=== PATIENT | female | born 1935 | race Caucasian/White ===

== ENCOUNTER 2017-08-20 08:35 | Inpatient (IN) | payer MEDICARE ==
[2017-08-14 11:02] LABS: BASOPHILS # (AUTO) 0.2 X10'3 (0-0.2); BASOPHILS % (AUTO) 0.5 % (0-1); EOSINOPHILS # (AUTO) 0.4 X10'3 (0-0.9); LYMPHOCYTES % (AUTO) 79.3 % (21-51); MEAN CORPUSCULAR HEMOGLOBIN 29.8 PG (27.0-31.0); MEAN CORPUSCULAR HGB CONC 32.5 % (33.0-36.5); MEAN CORPUSCULAR VOLUME 91.6 FL (78-98); MEAN PLATELET VOLUME 9.5 FL (7.4-10.4); MONOCYTES # (AUTO) 1.4 X10'3 (0-0.9); MONOCYTES % (AUTO) 3.5 % (2-12); NEUTROPHILS # (AUTO) 6.3 X10'3 (1.8-7.7); NEUTROPHILS % (AUTO) 15.7 % (42-75); PRE OP HEMATOCRIT 41.1 % (35.0-45.0); PRE OP HEMOGLOBIN 13.4 g/dL (12.0-16.0); PRE OP PLATELET COUNT 203 X10'3 (140-440); RED BLOOD COUNT 4.48 X10'6 (4.20-5.60); RED CELL DISTRIBUTION WIDTH 14.3 % (11.5-14.5)
[2017-08-14 11:04] LABS: CLARITY,URINE Clear (Clear); COLOR,URINE Yellow (Yellow); GLUCOSE, URINE Negative (Neg); KETONES,URINE Negative (Neg); LEUKOCYTE ESTERASE ,URINE Negative (Neg); NITRITES, URINE Negative (Neg); OCCULT BLOOD,URINE Negative (Neg); PROTEIN,URINE Negative (Neg); UROBILINOGEN,URINE 0.2 E.U/dL (0.2-1.0)
[2017-08-14 11:06] LABS: UA COLLECTION TYPE CLN CATCH MIDSTREAM
[2017-08-14 11:15] LABS: ALBUMIN/GLOBULIN RATIO 1.3 (1.1-1.5); ALKALINE PHOSPHATASE 113 IU/L (46-116); BLOOD UREA NITROGEN 26 MG/DL (7-18); BUN/CREATININE RATIO 20.6 (6.6-38.0); CHLORIDE 106 MMOL/L (99-107); CREATININE 1.26 MG/DL (0.40-0.90); PRE OP ALT 32 U/L (30-65); PRE OP ANION GAP 7 (8-16); PRE OP AST 24 U/L (10-37); PRE OP BILIRUB, TOTAL 0.3 MG/DL (0.0-1.0); PRE OP GLUCOSE 92 MG/DL (70-104); PRE OP SODIUM 141 MMOL/L (135-145); TOTAL CARBON DIOXIDE 28.2 MMOL/L (24-32); TOTAL PROTEIN 7.2 G/DL (6.4-8.2); eGFR 41 ML/MIN
[2017-08-14 11:21] LABS: TOTAL CELLS COUNTED 100
[2017-08-14 11:22] LABS: PLATELET ESTIMATE NORMAL
[2017-08-20] VITALS (15 sets, daily range): BP systolic 149–180; BP diastolic 59–79
[~2017-08-20] VITALS: Ht 167.6 cm; Wt 60.7 kg
[~2017-08-20 08:35] MED LIST: CHOL378P PO; CHOL400T32 PO; DILT240C96 PO; OMEP1CAP2 PO; ONDA8TAB6 PO; OXYC10TA6 PO; POLY17PO10 PO; PRAV40TA3 PO; ZOLP5TAB8 PO; clindamycin 600mg/D5W 50ml 50 ML IV ONE; famotidine 20mg tablet PO ONE; ringers solution, lacted 1,000 ML IV SCH
[2017-08-20] MEDS ORDERED: METO-292 PO (09:28)
[2017-08-20] MEDS ORDERED: PREVCR VG (09:28)
[2017-08-20] MEDS ORDERED: LACTC PO (09:28)
[2017-08-20] MEDS ORDERED: LYSI500T40 PO (09:28)
[2017-08-20] MEDS ORDERED: DEXL60CA3 PO (09:28)
[2017-08-20] MEDS ORDERED: BUPIVAcaine 0.5% inj/PF 30 ml vial ONE (11:37)
[2017-08-20] MEDS ORDERED: fentaNYL/PF 50MCG/1 ML 2ML syringe ONE (11:52)
[2017-08-20] MEDS ORDERED: midazolam 2 mg/2 ml injection ONE (11:53)
[2017-08-20] MEDS ORDERED: LIDOcaine 2% 5ml jelly ONE (11:53)
[2017-08-20] MEDS ORDERED: meperidine/PF 25mg/ml syringe IV PRN (12:25)
[2017-08-20] MEDS ORDERED: proCHLORperazine 10 MG/2 ml inj IV PRN (12:25)
[2017-08-20] MEDS ORDERED: morphine sulfate 8 MG/ML SYRINGE IV PRN (12:25)
[2017-08-20] MEDS ORDERED: ondansetron/PF 4mg/2ml inj IV PRN ×2 (12:25→13:20)
[2017-08-20] MEDS ORDERED: meperidine/PF 25mg/ml syringe IV ONE (12:25)
[2017-08-20] MEDS ORDERED: rocuronium 10mg/ml inj IV ONE (13:07)
[2017-08-20] MEDS ORDERED: dexamethasone sod phosphate 4mg/ml inj. ONE (13:07)
[2017-08-20] MEDS ORDERED: LIDOcaine 2% (20mg/ml) 5ml vial ONE (13:07)
[2017-08-20] MEDS ORDERED: propofol inj 20 ML IV ONE (13:07)
[2017-08-20] MEDS ORDERED: ondansetron/PF 4mg/2ml inj ONE (13:07)
[2017-08-20] MEDS ORDERED: zolpidem 5mg tablet PO PRN (13:20)
[2017-08-20] MEDS ORDERED: HYDROcodone/acetaminophen 5mg/325mg tablet PO PRN (13:20)
[2017-08-20] MEDS ORDERED: HYDROcodone/acetaminophen 10/325mg tab PO PRN (13:20)
[2017-08-20] MEDS: meperidine/PF 25mg/ml syringe IV PRN ×2 (13:57→14:08)
[2017-08-20] MEDS: morphine sulfate 8 MG/ML SYRINGE IV PRN ×3 (14:19→14:43)
[2017-08-20] MEDS ORDERED: ONDANSETRON HCL PO PRN (15:35)
[2017-08-20] MEDS: clindamycin phosphate inj 300 MG in dextrose 5%-water 50ml 48 ML IV SCH ×2 (15:38→20:16)
[2017-08-20] MEDS ORDERED: ondansetron 4mg rapidly disintigrating tab PO PRN (15:45)
[2017-08-20] MEDS: potassium CL 20mEq in D5-1/2NS 1,000 ML IV SCH (20:14)
[2017-08-20] MEDS: enoxaparin 30mg/0.3ml syringe SQ SCH (20:15)
[2017-08-20] MEDS: diltiazem CD 120mg capsule (once-daily) PO SCH (20:16)
[2017-08-20] MEDS: atorvastatin 10mg tablet PO SCH (20:16)
[2017-08-20] MEDS: oxyCODONE SR 10mg (sust. release) tab PO SCH (20:16)
[2017-08-20] MEDS ORDERED: OXYCODONE HCL 20 MG PO SCH (21:00)
[2017-08-20] MEDS ORDERED: pravastatin 40mg tablet PO SCH (21:00)
[2017-08-20] MEDS ORDERED: non-formulary drug (Diltiazem HCl (Diltiazem 24Hr Cd) 1 CAP) PO SCH (21:00)
[2017-08-20] MEDS: zolpidem 5mg tablet PO SCH (21:00)
[2017-08-21] VITALS: BP 153/65
[2017-08-21] MEDS: clindamycin phosphate inj 300 MG in dextrose 5%-water 50ml 48 ML IV SCH ×4 (01:56→20:16)
[2017-08-21] MEDS: ringers solution, lacted 1,000 ML IV SCH ×2 (02:02→02:04)
[2017-08-21 08:00] VITALS: BP 150/69
[2017-08-21] MEDS ORDERED: non-formulary drug (Dexlansoprazole (Dexilant) 1 CAP) PO SCH (08:00)
[2017-08-21] MEDS: oxyCODONE SR 10mg (sust. release) tab PO SCH ×3 (08:43→20:16)
[2017-08-21] MEDS: pantoprazole 40mg Tablet.DR PO SCH (08:44)
[2017-08-21] MEDS: enoxaparin 30mg/0.3ml syringe SQ SCH ×2 (08:44→20:16)
[2017-08-21] MEDS: potassium CL 20mEq in D5-1/2NS 1,000 ML IV SCH (08:44)
[2017-08-21] MEDS: metoclopramide 10mg tablet PO SCH ×2 (08:44→16:16)
[2017-08-21 11:00] VITALS: BP 143/52
[2017-08-21] MEDS: lactobacillus rhamnosus 10,000 MMU CELLS/CAPSULE PO SCH (17:52)
[2017-08-21 20:00] VITALS: BP 140/67
[2017-08-21] MEDS: atorvastatin 10mg tablet PO SCH (20:16)
[2017-08-21] MEDS: diltiazem CD 120mg capsule (once-daily) PO SCH (20:18)
[2017-08-21] MEDS: zolpidem 5mg tablet PO SCH (20:25)
[2017-08-21] MEDS ORDERED: estrogens, conjug. vaginal cream 45gm tube VG SCH (21:00)
[2017-08-22] VITALS: BP 150/57
[2017-08-22] MEDS: potassium CL 20mEq in D5-1/2NS 1,000 ML IV SCH (00:02)
[2017-08-22] MEDS: clindamycin phosphate inj 300 MG in dextrose 5%-water 50ml 48 ML IV SCH ×3 (01:30→12:38)
[2017-08-22 06:10] LABS: BASOPHILS % (AUTO) 0.1 % (0-1); EOSINOPHILS # (AUTO) 0.1 X10'3 (0-0.9); EOSINOPHILS % (AUTO) 0.4 % (0-6); HEMATOCRIT 33.5 % (35.0-45.0); HEMOGLOBIN 10.9 g/dl (12.0-16.0); LYMPHOCYTES # (AUTO) 19.7 X10'3 (1.1-4.8); LYMPHOCYTES % (AUTO) 58.8 % (21-51); MEAN CORPUSCULAR HEMOGLOBIN 29.6 PG (27.0-31.0); MEAN CORPUSCULAR HGB CONC 32.7 % (33.0-36.5); MEAN CORPUSCULAR VOLUME 90.7 FL (78-98); MEAN PLATELET VOLUME 10.7 FL (7.4-10.4); MONOCYTES # (AUTO) 1.4 X10'3 (0-0.9); MONOCYTES % (AUTO) 4.2 % (2-12); NEUTROPHILS # (AUTO) 12.2 X10'3 (1.8-7.7); NEUTROPHILS % (AUTO) 36.5 % (42-75); PLATELET COUNT 144 X10'3 (140-440); RED BLOOD COUNT 3.69 X10'6 (4.20-5.60); RED CELL DISTRIBUTION WIDTH 13.9 % (11.5-14.5)
[2017-08-22 06:17] LABS: ALBUMIN 3.1 G/DL (3.4-5.0); ANION GAP 7 (8-16); BLOOD UREA NITROGEN 11 MG/DL (7-18); BUN/CREATININE RATIO 10.4 (6.6-38.0); CALCIUM 8.3 MG/DL (8.5-10.1); CHLORIDE 106 MMOL/L (99-107); CREATININE 1.06 MG/DL (0.40-0.90); GLUCOSE 98 MG/DL (70-104); POTASSIUM 4.4 MMOL/L (3.5-5.1); SODIUM 143 MMOL/L (135-145); eGFR 50 ML/MIN
[2017-08-22 07:02] LABS: WHITE BLOOD COUNT 33.5 X10'3 (4.5-11.0)
[2017-08-22] MEDS: oxyCODONE SR 10mg (sust. release) tab PO SCH ×2 (08:42→12:38)
[2017-08-22] MEDS: pantoprazole 40mg Tablet.DR PO SCH (08:42)
[2017-08-22] MEDS: enoxaparin 30mg/0.3ml syringe SQ SCH (08:44)
[2017-08-22] MEDS: metoclopramide 10mg tablet PO SCH ×2 (10:20)
[2017-08-22] MEDS: lactobacillus rhamnosus 10,000 MMU CELLS/CAPSULE PO SCH (10:20)
[2017-08-22 10:22] LABS: TOTAL CELLS COUNTED 100
[2017-08-22 10:23] LABS: LARGE PLATELETS FEW; PLATELET ESTIMATE NORMAL
[2017-08-22 10:25] LABS: SMUDGE CELLS 1+
[2017-08-22 12:00] VITALS: BP 121/56
== END 2017-08-22 13:44 | disposition home or self-care (01) | DRG 349 ==
LOC: PAS 08:35 → SUR 3N 13:19
PROVIDERS: ADMIT Surgery; ATTEND Surgery
PROC: 0DBP7ZZ Excision of Rectum, Via Natural or Artificial Opening (ICD-10-PCS; principal; 2017-08-20 11:46)
DX: K62.3 Rectal prolapse (principal); G89.29 Other chronic pain; I10 Essential (primary) hypertension; K21.9 Gastro-esophageal reflux disease without esophagitis; Z88.5 Allergy status to narcotic agent; Z88.0 Allergy status to penicillin; Z88.2 Allergy status to sulfonamides; Z88.8 Allergy status to other drugs, medicaments and biological substances; Z91.018 Allergy to other foods; Z85.6 Personal history of leukemia
CPT/HCPCS: 36415; 80048; 80053; 81003; 85025; 87070; 88305; 93005; A6213; A6224; A6257; A6449; A7000; J1100; J1650; J2001; J2175; J2250; J2270; J2405; J2704; J3010; J3490; J7060; J7120; J8597

== ENCOUNTER → 2020-07-22 | Emergency (ER) | payer MEDICARE ==
[~2020-07-22] VITALS: Ht 167.6 cm; Wt 61.8 kg
[~2020-07-22] MED LIST changes: -CHOL400T32 PO; +DEXL60CA3 PO; +LACTC PO; +LYSI500T40 PO; +METO-292 PO; -OMEP1CAP2 PO; +PREVCR VG; -clindamycin 600mg/D5W 50ml 50 ML IV ONE; -famotidine 20mg tablet PO ONE; -ringers solution, lacted 1,000 ML IV SCH
[2020-07-22 14:15] VITALS: BP 174/44
== END | disposition left against medical advice (07) ==
LOC: ER 13:39
DX: R10.84 Generalized abdominal pain (principal); R53.1 Weakness; Z53.21 Procedure and treatment not carried out due to patient leaving prior to being seen by health care provider

== ENCOUNTER 2022-02-11 12:22 | Emergency (ER) | payer MEDICARE ==
[~2022-02-11] VITALS: Ht 160 cm; Wt 62.0 kg
[~2022-02-11 12:22] MED LIST changes: -CHOL378P PO; +CHOL378P13 PO
[2022-02-11 13:14] LABS: BASOPHILS % (AUTO) 0.1 % (0-1); MEAN CORPUSCULAR HEMOGLOBIN 29.4 PG (27.0-31.0); RED CELL DISTRIBUTION WIDTH 14.7 % (11.5-14.5)
[2022-02-11 13:15] LABS: ALANINE AMINOTRANSFERASE 211 U/L (12-78); ALBUMIN 3.9 G/DL (3.4-5.0); ALBUMIN/GLOBULIN RATIO 1.2 (1.1-1.5); ALKALINE PHOSPHATASE 239 IU/L (46-116); ANION GAP 11 (8-16); ASPARTATE AMINO TRANSFERASE 272 U/L (10-37); BLOOD UREA NITROGEN 26 MG/DL (7-18); BUN/CREATININE RATIO 24.8 (6.6-38.0); CALCIUM 9.2 MG/DL (8.5-10.1); CHLORIDE 103 MMOL/L (99-107); CREATININE 1.05 MG/DL (0.40-0.90); GLUCOSE 138 MG/DL (70-104); LIPASE 127 U/L (73-393); POTASSIUM 4.6 MMOL/L (3.5-5.1); SODIUM 138 MMOL/L (135-145); TOTAL CARBON DIOXIDE 24.4 MMOL/L (24-32); TOTAL PROTEIN 7.1 G/DL (6.4-8.2); eGFR 50 ML/MIN
[2022-02-11 13:16] LABS: EOSINOPHILS # (AUTO) 0.1 X10'3 (0-0.9); EOSINOPHILS % (AUTO) 0.3 % (0-6); HEMOGLOBIN 12.5 g/dl (12.0-16.0); LYMPHOCYTES # (AUTO) 16.5 X10'3 (1.1-4.8); LYMPHOCYTES % (AUTO) 65.5 % (21-51); MEAN CORPUSCULAR HGB CONC 32.8 g/dL (33.0-36.5); MEAN CORPUSCULAR VOLUME 89.7 FL (78-98); MEAN PLATELET VOLUME 10.6 FL (7.4-10.4); MONOCYTES # (AUTO) 0.5 X10'3 (0-0.9); NEUTROPHILS # (AUTO) 8.1 X10'3 (1.8-7.7); NEUTROPHILS % (AUTO) 32.1 % (42-75); PLATELET COUNT 107 X10'3 (140-440); RED BLOOD COUNT 4.23 X10'6 (4.20-5.60)
[2022-02-11 13:20] LABS: WHITE BLOOD COUNT 25.3 X10'3 (4.5-11.0)
[2022-02-11 13:39] LABS: TOTAL CELLS COUNTED 100
[2022-02-11 13:40] LABS: PLATELET ESTIMATE DECREASED
[2022-02-11 13:41] LABS: ELLIPTOCYTES FEW; SMUDGE CELLS FEW; TEAR DROP CELLS FEW
[2022-02-11 13:45] LABS: CLARITY,URINE CLEAR (Clear); COLOR,URINE YELLOW (Yellow); GLUCOSE, URINE NEGATIVE (Neg); KETONES,URINE NEGATIVE (Neg); LEUKOCYTE ESTERASE ,URINE NEGATIVE (Neg); NITRITES, URINE NEGATIVE (Neg); OCCULT BLOOD,URINE NEGATIVE (Neg); PROTEIN,URINE TRACE mg/dl (Neg)
[2022-02-11 13:46] LABS: UA COLLECTION TYPE CLN CATCH MIDSTREAM
[2022-02-11 13:56] VITALS: BP 160/62
[2022-02-11 13:59] LABS: SQUAMOUS EPITHELIAL CELL,UR FEW /LPF (FEW)
[2022-02-11 14:02] LABS: BACTERIA,URINE FEW /HPF (Neg); RBC,URINE 0-2 /HPF (0-2); WBC,URINE 0-4 /HPF (0-4)
[2022-02-11] MEDS ORDERED: OXYC-145 PO (14:07)
[2022-02-11] MEDS ORDERED: LEVO100C4 PO (14:07)
[2022-02-11] MEDS ORDERED: [UNRECOGNIZED DRUG - OTHER] (14:07)
[2022-02-11] MEDS ORDERED: KEN0.1O TP (14:07)
[2022-02-11] MEDS ORDERED: RABE20TA18 PO (14:07)
[2022-02-11] MEDS ORDERED: TEMA30CA5 PO (14:07)
--- NOTE | 2022-02-11 14:40 | NUR ---
Pt and given and understands d/c instructions. IV d/c'd, catheter was intact. Ambulatory with a slow steady gait.
== END 2022-02-11 14:40 | disposition home or self-care (01) ==
LOC: ER 12:22
DX: R10.13 Epigastric pain (principal); R11.2 Nausea with vomiting, unspecified; E78.00 Pure hypercholesterolemia, unspecified; I10 Essential (primary) hypertension; M19.90 Unspecified osteoarthritis, unspecified site; Z85.9 Personal history of malignant neoplasm, unspecified; Z90.89 Acquired absence of other organs; Z90.710 Acquired absence of both cervix and uterus; Z98.890 Other specified postprocedural states; Z88.0 Allergy status to penicillin; Z88.8 Allergy status to other drugs, medicaments and biological substances; Z79.899 Other long term (current) drug therapy
CPT/HCPCS: 80053; 81001; 83690; 84145; 84484; 85007; 85025; 99284

== ENCOUNTER 2022-04-02 05:13 | Emergency (ER) | payer MEDICARE ==
[~2022-04-02] VITALS: Ht 165.1 cm; Wt 61.8 kg
[~2022-04-02 05:13] MED LIST changes: +KEN0.1O TP; +LEVO100C4 PO; +OXYC-145 PO; +RABE20TA18 PO; +TEMA30CA5 PO; +[UNRECOGNIZED DRUG - OTHER]
[2022-04-02 05:26] VITALS: BP 214/86
== END 2022-04-02 10:14 | disposition left against medical advice (07) ==
LOC: ER 05:13
DX: R10.31 Right lower quadrant pain (principal); Z53.21 Procedure and treatment not carried out due to patient leaving prior to being seen by health care provider

== ENCOUNTER 2022-04-09 11:30 | Inpatient (IN) | payer MEDICARE ==
[~2022-04-09] VITALS: Ht 167.6 cm; Wt 61.0 kg
[2022-04-09 14:55] LABS: BASOPHILS # (AUTO) 0.1 X10'3 (0-0.2); BASOPHILS % (AUTO) 0.2 % (0-1); EOSINOPHILS # (AUTO) 0.3 X10'3 (0-0.9); HEMOGLOBIN 12.6 g/dl (12.0-16.0); MEAN CORPUSCULAR VOLUME 92.3 FL (78-98); MEAN PLATELET VOLUME 9.9 FL (7.4-10.4); NEUTROPHILS % (AUTO) 9.4 % (42-75)
[2022-04-09 14:57] LABS: EOSINOPHILS % (AUTO) 0.5 % (0-6); HEMATOCRIT 38.5 % (35.0-45.0); LYMPHOCYTES # (AUTO) 48.1 X10'3 (1.1-4.8); LYMPHOCYTES % (AUTO) 87.9 % (21-51); MEAN CORPUSCULAR HEMOGLOBIN 30.2 PG (27.0-31.0); MEAN CORPUSCULAR HGB CONC 32.7 g/dL (33.0-36.5); MONOCYTES # (AUTO) 1.1 X10'3 (0-0.9); NEUTROPHILS # (AUTO) 5.1 X10'3 (1.8-7.7); PLATELET COUNT 232 X10'3 (140-440); RED BLOOD COUNT 4.17 X10'6 (4.20-5.60); RED CELL DISTRIBUTION WIDTH 13.9 % (11.5-14.5)
[2022-04-09 14:59] LABS: WHITE BLOOD COUNT 54.7 X10'3 (4.5-11.0)
[2022-04-09 15:10] LABS: ALANINE AMINOTRANSFERASE 70 U/L (12-78); ALBUMIN 4.3 G/DL (3.4-5.0); ALBUMIN/GLOBULIN RATIO 1.2 (1.1-1.5); ALKALINE PHOSPHATASE 207 IU/L (46-116); ANION GAP 9 (8-16); ASPARTATE AMINO TRANSFERASE 35 U/L (10-37); BILIRUBIN,TOTAL 0.4 MG/DL (0.1-1.0); BLOOD UREA NITROGEN 31 MG/DL (7-18); CALCIUM 9.1 MG/DL (8.5-10.1); CHLORIDE 105 MMOL/L (99-107); CREATININE 1.41 MG/DL (0.40-0.90); GLUCOSE 101 MG/DL (70-104); LIPASE 121 U/L (73-393); POTASSIUM 4.9 MMOL/L (3.5-5.1); SODIUM 141 MMOL/L (135-145); TOTAL CARBON DIOXIDE 27.1 MMOL/L (24-32); TOTAL PROTEIN 7.8 G/DL (6.4-8.2); eGFR 35 ML/MIN
[2022-04-09] MEDS ORDERED: oxyCODONE/APAP 10/325mg tablet PO ONE (15:20)
[2022-04-09] MEDS ORDERED: IOHEXOL 12MG/ML oral solution 500 ML BOTTLE PO ONE (15:25)
--- NOTE | 2022-04-09 16:14 | NUR ---
Pt is awake, alert and orientedx4. on room air, no form of distress. Bp is elevated. percocet gven for pain. Matt Campos made aware of pt's bp. awaiting new orders. Iv access x2 placed
[2022-04-09] MEDS ORDERED: cloNIDine 0.1 mg tablet PO ONE (16:15)
[2022-04-09] MEDS ORDERED: ringers solution, lacted 1,000 ML IV ONE (16:20)
--- NOTE | 2022-04-09 16:33 | NUR ---
pt is medicated and waiting for CT scan
[2022-04-09 16:34] LABS: TOTAL CELLS COUNTED 100
--- NOTE | 2022-04-09 16:43 | NUR ---
left for Ct scan
[2022-04-09 16:45] LABS: PLATELET ESTIMATE NORMAL
[2022-04-09 16:46] LABS: ANISOCYTOSIS FEW; SMUDGE CELLS 2+
[2022-04-09 16:47] LABS: ELLIPTOCYTES FEW
[2022-04-09] MEDS ORDERED: LEVO75TA7 PO (17:00)
[2022-04-09] MEDS ORDERED: CICL15CR13 TOP (17:00)
[2022-04-09] MEDS ORDERED: TOBR5DRO7 EACHEYE (17:05)
[2022-04-09] MEDS ORDERED: PER5325T PO (17:05)
[2022-04-09] MEDS ORDERED: PEG15DRO14 EACHEYE (17:05)
[2022-04-09] MEDS ORDERED: cognium PO (17:05)
[2022-04-09 17:47] LABS: CLARITY,URINE CLEAR (Clear); COLOR,URINE YELLOW (Yellow); GLUCOSE, URINE NEGATIVE (Neg); KETONES,URINE NEGATIVE (Neg); LEUKOCYTE ESTERASE ,URINE NEGATIVE (Neg); NITRITES, URINE NEGATIVE (Neg); OCCULT BLOOD,URINE NEGATIVE (Neg); PROTEIN,URINE NEGATIVE (Neg); UROBILINOGEN,URINE 0.2 E.U/dL (0.2-1.0)
[2022-04-09 17:48] LABS: UA COLLECTION TYPE CLN CATCH MIDSTREAM
[2022-04-09] MEDS ORDERED: cefepime 1GM/NS ADD-VANTAGE 100 ML IV ONE (17:50)
--- NOTE | 2022-04-09 17:56 | NUR ---
Contacted pharmacy to send pt's Cefepime dose
--- NOTE | 2022-04-09 18:30 | NUR ---
ASSUMED CARE OF PT. A&OX4. PLAN OF CARE DISCUSSED WITH PT. VERBELIZED UNDERSTANDING. DENIES PAIN OR DISCOMFORT. OPAL MONITOR.
[2022-04-09] MEDS ORDERED: acetaminophen 325mg tablet PO PRN ×2 (18:40)
[2022-04-09] MEDS ORDERED: potassium CL 10mEq/100ml bag 100 ML IV PRN (18:40)
[2022-04-09] MEDS ORDERED: magnesium Cl slow-release 64mg tablet PO PRN (18:40)
[2022-04-09] MEDS ORDERED: magnesium 4gm in 100ml NS 100 ML IV PRN (18:40)
[2022-04-09] MEDS ORDERED: POTASSIUM BICARB 20meq eff tab 20 MEQ TABLET.EFF PO PRN ×2 (18:40)
[2022-04-09] MEDS ORDERED: bisacodyl 10mg suppository rectal RC PRN (18:40)
[2022-04-09] MEDS ORDERED: magnesium hydroxide 30ml (MOM) UD suspension PO PRN (18:40)
[2022-04-09] MEDS: normal saline 1000ml 1,000 ML IV SCH (18:40)
[2022-04-09] MEDS ORDERED: magnesium 2GM in 50ml NS 50 ML IV PRN (18:40)
[2022-04-09] MEDS ORDERED: ondansetron/PF 4mg/2ml inj IV PRN (18:40)
--- NOTE | 2022-04-09 19:30 | NUR ---
MRI FORM COMPLETED AND FAXED.
[2022-04-09] MEDS: K and/or MAG REPLACEMENT MC SCH (20:00)
[2022-04-09] MEDS: tobramycin/dexamethasone ophthalmic suspension EACHEYE SCH ×2 (20:00→23:00)
[2022-04-09] MEDS: diltiazem CD 120mg capsule (once-daily) PO SCH (20:50)
[2022-04-09] MEDS: heparin, porcine 5000 units/ml vial SQ SCH (20:50)
[2022-04-09] MEDS ORDERED: temazepam 15mg capsule PO PRN (21:00)
[2022-04-09] MEDS: temazepam 15mg capsule PO SCH (22:14)
[2022-04-09] MEDS: oxyCODONE/APAP 5-325mg tablet PO PRN (23:16)
[2022-04-10] VITALS (8 sets, daily range): BP systolic 133–163; BP diastolic 49–71
--- NOTE | 2022-04-10 | NUR ---
100 ML URINE OUT
[2022-04-10] MEDS: cefepime 1GM/NS ADD-VANTAGE 100 ML IV SCH ×4 (00:24→21:52)
--- NOTE | 2022-04-10 04:04 | NUR ---
200ML URINE OUT.
[2022-04-10 07:19] LABS: BASOPHILS % (AUTO) 0.1 % (0-1); EOSINOPHILS # (AUTO) 0.2 X10'3 (0-0.9); EOSINOPHILS % (AUTO) 0.7 % (0-6); HEMOGLOBIN 11.5 g/dl (12.0-16.0); MONOCYTES # (AUTO) 0.5 X10'3 (0-0.9); RED CELL DISTRIBUTION WIDTH 13.9 % (11.5-14.5)
[2022-04-10 07:21] LABS: LYMPHOCYTES # (AUTO) 27.3 X10'3 (1.1-4.8); LYMPHOCYTES % (AUTO) 89.7 % (21-51); MEAN CORPUSCULAR HGB CONC 32.8 g/dL (33.0-36.5); MEAN CORPUSCULAR VOLUME 91.4 FL (78-98); MEAN PLATELET VOLUME 9.7 FL (7.4-10.4); MONOCYTES % (AUTO) 1.6 % (2-12); NEUTROPHILS # (AUTO) 2.4 X10'3 (1.8-7.7); NEUTROPHILS % (AUTO) 7.9 % (42-75); PLATELET COUNT 157 X10'3 (140-440); RED BLOOD COUNT 3.83 X10'6 (4.20-5.60)
[2022-04-10 07:27] LABS: WHITE BLOOD COUNT 30.5 X10'3 (4.5-11.0)
[2022-04-10 07:28] LABS: ALANINE AMINOTRANSFERASE 53 U/L (12-78); ALBUMIN 3.5 G/DL (3.4-5.0); ALBUMIN/GLOBULIN RATIO 1.1 (1.1-1.5); ALKALINE PHOSPHATASE 171 IU/L (46-116); ANION GAP 8 (8-16); ASPARTATE AMINO TRANSFERASE 25 U/L (10-37); BILIRUBIN,TOTAL 0.5 MG/DL (0.1-1.0); BLOOD UREA NITROGEN 24 MG/DL (7-18); BUN/CREATININE RATIO 21.2 (6.6-38.0); CALCIUM 8.7 MG/DL (8.5-10.1); CHLORIDE 109 MMOL/L (99-107); CHOL/HDL RATIO 2.6 (0.00-4.99); CHOLESTEROL 121 MG/DL (0-200); CREATININE 1.13 MG/DL (0.40-0.90); GLUCOSE 86 MG/DL (70-104); HDL CHOLESTEROL 47 MG/DL (35-60); LDL CHOLESTEROL 50 MG/DL (50-100); POTASSIUM 4.6 MMOL/L (3.5-5.1); SODIUM 143 MMOL/L (135-145); TOTAL CARBON DIOXIDE 25.8 MMOL/L (24-32); TOTAL PROTEIN 6.6 G/DL (6.4-8.2); TRIGLYCERIDES 94 MG/DL (20-135); eGFR 46 ML/MIN
[2022-04-10] MEDS: levoTHYROXINE 75mcg tablet PO SCH (08:00)
[2022-04-10] MEDS: lactobacillus rhamnosus 10,000 MMU CELLS/CAPSULE PO SCH (08:00)
[2022-04-10] MEDS: heparin, porcine 5000 units/ml vial SQ SCH (08:00)
[2022-04-10] MEDS: pantoprazole 40mg Tablet.DR PO SCH (08:00)
[2022-04-10] MEDS: K and/or MAG REPLACEMENT MC SCH ×2 (08:00→20:00)
[2022-04-10 08:33] LABS: PLATELET ESTIMATE NORMAL; TOTAL CELLS COUNTED 100
[2022-04-10 08:34] LABS: SMUDGE CELLS 3+
--- NOTE | 2022-04-10 09:29 | NUR ---
PT TO NUC MED ON MONITOR WITH RN FOR HIDA SCAN, PT IS ABLE TO TRANSFER SELF WITH MIN ASSIST FROM BED TO WHEELCHAIR, RESP EVEN AND UNLABORED, SKIN P/W/D, GCS 15, SR ON MONITOR, NO ECTOPY HR 61, RR 22
[2022-04-10] MEDS ORDERED: NORMAL SALINE IV ONE ×2 (10:20→10:25)
[2022-04-10] MEDS ORDERED: SINCALIDE IV ONE ×2 (10:20→10:25)
--- NOTE | 2022-04-10 10:50 | NUR ---
PT MEDICATED PER PROTOCOL FOR HIDA SCAN, CONTINUES TO REST QUIETLY, RESP EVEN AND UNLABORED, SR ON MONITOR, NO ECTOPY
--- NOTE | 2022-04-10 11:31 | NUR ---
PT REMAINS OUT TO NUC MED
[2022-04-10] MEDS: normal saline 1000ml 1,000 ML IV SCH ×2 (12:50→23:46)
[2022-04-10] MEDS: morphine 2 MG/ML inj. syringe IV PRN ×2 (13:06→22:03)
[2022-04-10] MEDS ORDERED: levoFLOXACIN-Levaquin 500mg/D5 0 ML IV ONE (16:43)
[2022-04-10] MEDS ORDERED: MIDAZolam 1 MG/ML 5ML VIAL ONE (16:43)
[2022-04-10] MEDS ORDERED: diphenhydrAMINE 50 mg/ml inj ONE (16:43)
[2022-04-10] MEDS ORDERED: fentaNYL/PF 50MCG/1 ML 2ML syringe ONE (16:43)
[2022-04-10] MEDS ORDERED: LIDOcaine Viscous 15ml cup ONE (16:44)
[2022-04-10] MEDS ORDERED: glucagon, human recombinant 1mg kit ONE (16:44)
[2022-04-10] MEDS ORDERED: iohexol 300 MG/1 ML 50ml polymer ONE (16:44)
--- NOTE | 2022-04-10 16:55 | NUR ---
Patient to GI lab.
--- NOTE | 2022-04-10 18:15 | NUR ---
PT IS AT GI LAB AND WAS TAKEN AROUND 1650.
--- NOTE | 2022-04-10 19:00 | NUR ---
REPORT GIVEN TO IGOR LAU. PT STILL IN GI AND AWAITING REPORT FROM GI LAB.
[2022-04-10] MEDS: diltiazem CD 120mg capsule (once-daily) PO SCH (21:47)
[2022-04-10] MEDS: temazepam 15mg capsule PO SCH (21:47)
[2022-04-10] MEDS: tobramycin/dexamethasone ophthalmic suspension EACHEYE SCH (21:51)
[2022-04-11] VITALS (18 sets, daily range): BP systolic 113–178; BP diastolic 44–97
[2022-04-11 06:14] LABS: BASOPHILS # (AUTO) 0.1 X10'3 (0-0.2); EOSINOPHILS # (AUTO) 0.1 X10'3 (0-0.9); HEMOGLOBIN 11.6 g/dl (12.0-16.0); LYMPHOCYTES # (AUTO) 22.4 X10'3 (1.1-4.8); MEAN CORPUSCULAR HEMOGLOBIN 30.2 PG (27.0-31.0); MONOCYTES # (AUTO) 0.5 X10'3 (0-0.9)
[2022-04-11 06:16] LABS: BASOPHILS % (AUTO) 0.3 % (0-1); EOSINOPHILS % (AUTO) 0.4 % (0-6); HEMATOCRIT 35.4 % (35.0-45.0); LYMPHOCYTES % (AUTO) 74.3 % (21-51); MEAN CORPUSCULAR HGB CONC 32.8 g/dL (33.0-36.5); MEAN PLATELET VOLUME 10.1 FL (7.4-10.4); MONOCYTES % (AUTO) 1.5 % (2-12); NEUTROPHILS # (AUTO) 7.1 X10'3 (1.8-7.7); NEUTROPHILS % (AUTO) 23.5 % (42-75); PLATELET COUNT 159 X10'3 (140-440); RED BLOOD COUNT 3.85 X10'6 (4.20-5.60)
[2022-04-11 06:25] LABS: ALANINE AMINOTRANSFERASE 52 U/L (12-78); ALBUMIN 3.4 G/DL (3.4-5.0); ALBUMIN/GLOBULIN RATIO 1.2 (1.1-1.5); ALKALINE PHOSPHATASE 177 IU/L (46-116); ANION GAP 16 (8-16); ASPARTATE AMINO TRANSFERASE 33 U/L (10-37); BILIRUBIN,TOTAL 0.6 MG/DL (0.1-1.0); BLOOD UREA NITROGEN 19 MG/DL (7-18); BUN/CREATININE RATIO 20.4 (6.6-38.0); CALCIUM 8.6 MG/DL (8.5-10.1); CHLORIDE 108 MMOL/L (99-107); CREATININE 0.93 MG/DL (0.40-0.90); GLUCOSE 66 MG/DL (70-104); POTASSIUM 4.3 MMOL/L (3.5-5.1); SODIUM 141 MMOL/L (135-145); TOTAL CARBON DIOXIDE 17.5 MMOL/L (24-32); TOTAL PROTEIN 6.3 G/DL (6.4-8.2); eGFR 57 ML/MIN
[2022-04-11 06:29] LABS: WHITE BLOOD COUNT 30.2 X10'3 (4.5-11.0)
--- NOTE | 2022-04-11 06:35 | NUR ---
Patient in room PCU 3016. I have received report from IGOR Rolle and had the opportunity to ask questions and assume patient care.
--- NOTE | 2022-04-11 06:46 | NUR ---
pt in rm 3016b, Zion Clements has critical WBC result of 30.2. fabiana [id number]
--- NOTE | 2022-04-11 07:22 | NUR ---
reassessment of MS, given 04/10 at 1306, not charted. this RN was not present at that time.
[2022-04-11] MEDS: cefepime 1GM/NS ADD-VANTAGE 100 ML IV SCH (07:35)
[2022-04-11] MEDS: oxyCODONE/APAP 5-325mg tablet PO PRN (07:35)
[2022-04-11] MEDS: lactobacillus rhamnosus 10,000 MMU CELLS/CAPSULE PO SCH (07:36)
[2022-04-11] MEDS: levoTHYROXINE 75mcg tablet PO SCH (07:36)
[2022-04-11] MEDS: pantoprazole 40mg Tablet.DR PO SCH (07:36)
[2022-04-11] MEDS: tobramycin/dexamethasone ophthalmic suspension EACHEYE SCH ×2 (07:41→20:00)
[2022-04-11] MEDS: K and/or MAG REPLACEMENT MC SCH ×2 (08:00→20:00)
[2022-04-11 08:59] LABS: TOTAL CELLS COUNTED 100
[2022-04-11 09:02] LABS: PLATELET ESTIMATE NORMAL
[2022-04-11 09:03] LABS: SMUDGE CELLS 3+
[2022-04-11] MEDS: normal saline 1000ml 1,000 ML IV SCH (12:15)
[2022-04-11] MEDS ORDERED: INDOCYANINE GREEN 25 MG/10 ML VIAL IV ONE (18:35)
[2022-04-11] MEDS ORDERED: BUPIVAcaine/PF 2.5mg/ml (0.25%) 10ml vial ONE (18:42)
--- NOTE | 2022-04-11 19:00 | NUR ---
Problems reprioritized. Patient report given, questions answered & plan of care reviewed with IGOR Rolon.
[2022-04-11] MEDS ORDERED: dextrose 50%-water 50ml dispensing syringe IV ONE ×2 (19:04→19:05)
--- NOTE | 2022-04-11 19:05 | NUR ---
Patient in room PCU 3016. I have received report from RANDY COSTA and had the opportunity to ask questions and assume patient care.PATIENT GOING TO OR NOW WITH OR TECH FOR PIPPA NG BY DR. MADRIGAL.
[2022-04-11] MEDS ORDERED: ringers solution, lacted 1,000 ML IV SCH (19:20)
[2022-04-11] MEDS ORDERED: HYDROmorphone/PF 0.2 MG/ML SYRINGE IV PRN (19:20)
[2022-04-11] MEDS ORDERED: ondansetron/PF 4mg/2ml inj IV PRN ×2 (19:20→21:00)
[2022-04-11] MEDS ORDERED: fentaNYL/PF 50MCG/1 ML 2ML syringe IV PRN ×2 (19:20)
[2022-04-11] MEDS ORDERED: fentaNYL/PF 50MCG/1 ML 2ML syringe ONE ×2 (19:21→20:12)
[2022-04-11] MEDS ORDERED: propofol inj 20 ML IV ONE (19:23)
[2022-04-11] MEDS ORDERED: LIDOcaine 2% (20mg/ml) 5ml vial ONE (19:23)
[2022-04-11] MEDS ORDERED: rocuronium 10mg/ml inj IV ONE (19:23)
[2022-04-11] MEDS ORDERED: sevoflurane 250ml liquid IH ONE (19:28)
[2022-04-11] MEDS ORDERED: HYDROcodone/acetaminophen 5mg/325mg tablet PO PRN (21:00)
[2022-04-11] MEDS ORDERED: naloxone 0.4 mg/ml inj IV PRN (21:00)
--- NOTE | 2022-04-11 21:02 | NUR ---
Received from OR via SURGICAL BED , accompanied by Anesthesiologist LISSETT and report given by Anesthesiolgist. PATIENT WITH 20G PIV AND 18G PIV IN RIGHT UE. 20G PIV IN PLACE RUNNING LR AT 70'. VSS. 4 LAP SITES TO ABDOMEN THAT ARE ALL CDI CURRENTLY. SCDS DONNED. DENIES PAIN. 10L MASK ON WITH 100% SATURATIONS. DENIES PAIN AT THIS TIME. Addendum: 04/11/22 at 2131 by Trung Schulz RN, RN Amended: Links added.
[2022-04-11] MEDS ORDERED: neostigmine methylsulfate 1 MG/ML 10ml vial ONE (21:12)
[2022-04-11] MEDS ORDERED: glycopyrrolate 0.2mg/ml inj ONE (21:12)
[2022-04-11] MEDS ORDERED: dexamethasone sod phosphate 4mg/ml inj. ONE (21:12)
[2022-04-11] MEDS ORDERED: ondansetron/PF 4mg/2ml inj ONE (21:12)
--- NOTE | 2022-04-11 21:14 | NUR ---
90 ACCUCHECK UPON ARRIVAL FROM 0R. 130 PRE OP AFTER ADMIN OF 09/17 AMP D50 PREOP. Addendum: 04/11/22 at 2116 by Trung Schulz RN RN Amended: Links added.
--- NOTE | 2022-04-11 21:52 | NUR ---
CARE OF PATIENT AND REPORT HAS BEEN CALLED. ALL QUESTIONS ANSWERED TO ACCEPTING RN. PATIENT HAS MET ALL CRITERIA FOR TRANSFER TO THE PCU FLOOR. VSS. DRESSINGS INTACT. BED LOW, CALL LIGHT PRESENT AND 2 RAILS UP. RN PRESENT TO ACCEPT PATIENT. ALL BELONGINGS IN PATIENT ROOM ALREADY. IGOR SANDS PRESENT TO TAKE REPORT AT BEDSIDE AND SETTLE PATIENT IN . VSS Addendum: 04/11/22 at 2155 by Trung Juarez - IGOR RN Amended: Links added.
[2022-04-11] MEDS: temazepam 15mg capsule PO SCH (23:11)
[2022-04-11] MEDS: diltiazem CD 120mg capsule (once-daily) PO SCH (23:12)
[2022-04-12] VITALS (8 sets, daily range): BP systolic 148–180; BP diastolic 47–59
[2022-04-12] MEDS: normal saline 1000ml 1,000 ML IV SCH (01:50)
--- NOTE | 2022-04-12 06:36 | NUR ---
Patient in room PCU 3016. I have received report from IGOR Rolon and had the opportunity to ask questions and assume patient care.
[2022-04-12 07:17] LABS: EOSINOPHILS % (AUTO) 0 % (0-6); HEMATOCRIT 35.9 % (35.0-45.0)
[2022-04-12 07:21] LABS: BASOPHILS % (AUTO) 0.2 % (0-1); HEMOGLOBIN 11.8 g/dl (12.0-16.0); LYMPHOCYTES % (AUTO) 68.7 % (21-51); MEAN CORPUSCULAR HEMOGLOBIN 30.1 PG (27.0-31.0); MEAN CORPUSCULAR HGB CONC 32.8 g/dL (33.0-36.5); MEAN CORPUSCULAR VOLUME 91.9 FL (78-98); MEAN PLATELET VOLUME 10.3 FL (7.4-10.4); MONOCYTES # (AUTO) 0.2 X10'3 (0-0.9); MONOCYTES % (AUTO) 0.7 % (2-12); NEUTROPHILS % (AUTO) 30.4 % (42-75); PLATELET COUNT 150 X10'3 (140-440); RED BLOOD COUNT 3.91 X10'6 (4.20-5.60); RED CELL DISTRIBUTION WIDTH 13.7 % (11.5-14.5)
[2022-04-12 07:26] LABS: WHITE BLOOD COUNT 26.2 X10'3 (4.5-11.0)
[2022-04-12 07:52] LABS: ALANINE AMINOTRANSFERASE 44 U/L (12-78); ALBUMIN 3.5 G/DL (3.4-5.0); ALBUMIN/GLOBULIN RATIO 1.2 (1.1-1.5); ALKALINE PHOSPHATASE 161 IU/L (46-116); ANION GAP 21 (8-16); ASPARTATE AMINO TRANSFERASE 26 U/L (10-37); BILIRUBIN,TOTAL 0.5 MG/DL (0.1-1.0); BLOOD UREA NITROGEN 17 MG/DL (7-18); BUN/CREATININE RATIO 17.9 (6.6-38.0); CALCIUM 8.5 MG/DL (8.5-10.1); CHLORIDE 106 MMOL/L (99-107); CREATININE 0.95 MG/DL (0.40-0.90); GLUCOSE 86 MG/DL (70-104); POTASSIUM 4.7 MMOL/L (3.5-5.1); SODIUM 141 MMOL/L (135-145); TOTAL PROTEIN 6.5 G/DL (6.4-8.2); eGFR 56 ML/MIN
[2022-04-12] MEDS: K and/or MAG REPLACEMENT MC SCH ×2 (08:00→20:00)
[2022-04-12 08:10] LABS: TOTAL CARBON DIOXIDE 14.5 MMOL/L (24-32)
[2022-04-12] MEDS: levoTHYROXINE 75mcg tablet PO SCH (08:16)
[2022-04-12] MEDS: pantoprazole 40mg Tablet.DR PO SCH (08:16)
[2022-04-12] MEDS: lactobacillus rhamnosus 10,000 MMU CELLS/CAPSULE PO SCH (08:16)
[2022-04-12] MEDS: oxyCODONE/APAP 5-325mg tablet PO PRN ×3 (08:16→21:52)
[2022-04-12] MEDS: cefepime 1GM/NS ADD-VANTAGE 100 ML IV SCH (08:16)
[2022-04-12 09:15] LABS: PLATELET ESTIMATE NORMAL; SMUDGE CELLS 3+; TOTAL CELLS COUNTED 100
[2022-04-12] MEDS: tobramycin/dexamethasone ophthalmic suspension EACHEYE SCH (11:46)
[2022-04-12] MEDS: sodium bicarbonate (8.4%) inj. 50 MEQ in dextrose 5%-water 1,000 ML IV SCH (11:47)
--- NOTE | 2022-04-12 18:20 | NUR ---
Problems reprioritized. Patient report given, questions answered & plan of care reviewed with IGOR Rolon.
[2022-04-12] MEDS: diltiazem CD 120mg capsule (once-daily) PO SCH (21:51)
[2022-04-12] MEDS: temazepam 15mg capsule PO SCH (21:51)
[2022-04-13] MEDS: tobramycin/dexamethasone ophthalmic suspension EACHEYE SCH ×2 (00:39→08:15)
[2022-04-13 02:00] VITALS: BP 156/58
[2022-04-13] MEDS: sodium bicarbonate (8.4%) inj. 50 MEQ in dextrose 5%-water 1,000 ML IV SCH (05:10)
[2022-04-13 06:00] VITALS: BP 112/91
--- NOTE | 2022-04-13 06:43 | NUR ---
Patient in room PCU 3016. I have received report from IGOR Rolon and had the opportunity to ask questions and assume patient care.
[2022-04-13 07:52] LABS: EOSINOPHILS % (AUTO) 0.2 % (0-6)
[2022-04-13 07:56] LABS: BASOPHILS % (AUTO) 0.1 % (0-1); HEMATOCRIT 34.2 % (35.0-45.0); HEMOGLOBIN 11.4 g/dl (12.0-16.0); LYMPHOCYTES # (AUTO) 23.7 X10'3 (1.1-4.8); LYMPHOCYTES % (AUTO) 76.9 % (21-51); MEAN CORPUSCULAR HEMOGLOBIN 30.1 PG (27.0-31.0); MEAN CORPUSCULAR HGB CONC 33.4 g/dL (33.0-36.5); MEAN CORPUSCULAR VOLUME 90.1 FL (78-98); MEAN PLATELET VOLUME 10.2 FL (7.4-10.4); MONOCYTES # (AUTO) 0.4 X10'3 (0-0.9); MONOCYTES % (AUTO) 1.4 % (2-12); NEUTROPHILS # (AUTO) 6.6 X10'3 (1.8-7.7); NEUTROPHILS % (AUTO) 21.4 % (42-75); PLATELET COUNT 176 X10'3 (140-440); RED CELL DISTRIBUTION WIDTH 13.8 % (11.5-14.5)
[2022-04-13 08:11] LABS: ALANINE AMINOTRANSFERASE 33 U/L (12-78); ALBUMIN 3.6 G/DL (3.4-5.0); ALBUMIN/GLOBULIN RATIO 1.2 (1.1-1.5); ALKALINE PHOSPHATASE 145 IU/L (46-116); ANION GAP 10 (8-16); ASPARTATE AMINO TRANSFERASE 24 U/L (10-37); BILIRUBIN,TOTAL 0.4 MG/DL (0.1-1.0); BLOOD UREA NITROGEN 18 MG/DL (7-18); BUN/CREATININE RATIO 15.8 (6.6-38.0); CALCIUM 8.7 MG/DL (8.5-10.1); CHLORIDE 105 MMOL/L (99-107); CREATININE 1.14 MG/DL (0.40-0.90); GLUCOSE 113 MG/DL (70-104); POTASSIUM 3.9 MMOL/L (3.5-5.1); SODIUM 142 MMOL/L (135-145); TOTAL CARBON DIOXIDE 26.9 MMOL/L (24-32); TOTAL PROTEIN 6.5 G/DL (6.4-8.2); eGFR 45 ML/MIN
[2022-04-13 08:14] LABS: WHITE BLOOD COUNT 30.8 X10'3 (4.5-11.0)
[2022-04-13] MEDS: lactobacillus rhamnosus 10,000 MMU CELLS/CAPSULE PO SCH (08:15)
[2022-04-13] MEDS: pantoprazole 40mg Tablet.DR PO SCH (08:15)
[2022-04-13] MEDS: cefepime 1GM/NS ADD-VANTAGE 100 ML IV SCH (08:15)
[2022-04-13] MEDS: levoTHYROXINE 75mcg tablet PO SCH (08:15)
[2022-04-13] MEDS ORDERED: normal saline 1000ml 1,000 ML IV SCH (08:35)
[2022-04-13 09:36] LABS: PLATELET ESTIMATE NORMAL; SMUDGE CELLS 1+; TOTAL CELLS COUNTED 100
--- NOTE | 2022-04-13 10:19 | NUR ---
Initial: Pt present with c/o right upper abdominal pain, found to have choledocholithiasis, cholelithiasis, and intrahepatic and extrahepatic biliary ductal dilation per physician note. Pt now POD #2 s/p laparoscopic cholecystectomy. Pt initially NPO however diet has been advanced to clear liquids, full liquids, and now on a regular diet as of this morning. Pt was eating well while on liquid diet, documented with 100% PO intake. Hopeful that pt will continue to eat well on regular diet. LBM 04/12 x 2 per I&O. Will continue to follow and monitor need for nutrition intervention pending trends in PO intake with diet advancement. Recommendations: 1) Continue regular diet 2) Bowel care PRN 3) Scaled weight this admit; subsequent weekly scaled weights Addendum: 04/13/22 at [address] Amended: Links added.
[2022-04-13 11:00] VITALS: BP 144/44
[2022-04-13] MEDS ORDERED: METR-159 PO (11:44)
[2022-04-13] MEDS ORDERED: CIPR-259 PO (11:45)
--- NOTE | 2022-04-13 13:30 | NUR ---
Pt discharged to home at 1322, with all belongings, in private vehicle, accompanied by . Discharge instructions and medications reviewed, new prescriptions e-scripted to [facility] on [address]. Pt instructed to follow up with Dr Ventura in 1 week, office number provided, as well as PCP and Oncologist. Post op education provided, with instructions to contact Dr Ventura with any concerns of infection. Pt states understanding and willingness to comply with discharge instructions. IV DC'd, cannula intact. Pt escorted to front lobby via wheelchair by PCT.
== END 2022-04-13 13:24 | disposition home or self-care (01) | DRG 418 ==
LOC: ER 11:30 → ED HOLD 18:48 → PCU 3S 04-10 19:40
PROVIDERS: ADMIT Internal Medicine; ATTEND Internal Medicine
PROC: BW211ZZ Computerized Tomography (CT Scan) of Abdomen and Pelvis using Low Osmolar Contrast (ICD-10-PCS; 2022-04-09)
PROC: CF1C1ZZ Planar Nuclear Medicine Imaging of Hepatobiliary System, All using Technetium 99m (Tc-99m) (ICD-10-PCS; 2022-04-10)
PROC: 0FC98ZZ Extirpation of Matter from Common Bile Duct, Via Natural or Artificial Opening Endoscopic (ICD-10-PCS; 2022-04-10)
PROC: 0F798DZ Dilation of Common Bile Duct with Intraluminal Device, Via Natural or Artificial Opening Endoscopic (ICD-10-PCS; 2022-04-10)
PROC: 8E0W4CZ Robotic Assisted Procedure of Trunk Region, Percutaneous Endoscopic Approach (ICD-10-PCS; 2022-04-11)
PROC: 0FT44ZZ Resection of Gallbladder, Percutaneous Endoscopic Approach (ICD-10-PCS; principal; 2022-04-11 19:28)
DX: K80.66 Calculus of gallbladder and bile duct with acute and chronic cholecystitis without obstruction (principal); C85.90 Non-Hodgkin lymphoma, unspecified, unspecified site; C91.10 Chronic lymphocytic leukemia of B-cell type not having achieved remission; N17.9 Acute kidney failure, unspecified; N18.30 Chronic kidney disease, stage 3 unspecified; E78.00 Pure hypercholesterolemia, unspecified; E03.9 Hypothyroidism, unspecified; R74.8 Abnormal levels of other serum enzymes; E78.5 Hyperlipidemia, unspecified; M19.90 Unspecified osteoarthritis, unspecified site; Z66 Do not resuscitate; G89.29 Other chronic pain; I12.9 Hypertensive chronic kidney disease with stage 1 through stage 4 chronic kidney disease, or unspecified chronic kidney disease; Z88.0 Allergy status to penicillin; Z90.710 Acquired absence of both cervix and uterus; Z88.8 Allergy status to other drugs, medicaments and biological substances; Z88.2 Allergy status to sulfonamides; Z88.5 Allergy status to narcotic agent; Z90.49 Acquired absence of other specified parts of digestive tract; Z79.890 Hormone replacement therapy
CPT/HCPCS: 36415; 43262; 43264; 43274; 74177; 74181; 78227; 80053; 80061; 81003; 82948; 83605; 83690; 84145; 85007; 85025; 85610; 87040; 87081; 87635; 88304; 93005; 96360; 97110; 97116; 97161; 97530; 99152; 99153; 99285; A4215; A4618; A4620; A7000; A9537; C1769; C2625; G0378; J0692; J1100; J1170; J1200; J1610; J1644; J1956; J2250; J2270; J2405; J2704; J2710; J2805; J3010; J3490; J7030; J7070; J7120; Q9967

== ENCOUNTER 2022-06-13 06:13 | Day surgery (SDC) | payer MEDICARE ==
[2022-06-13] VITALS (8 sets, daily range): BP systolic 134–175; BP diastolic 56–86
[~2022-06-13] VITALS: Ht 167.6 cm; Wt 59.0 kg
[~2022-06-13 06:13] MED LIST changes: -CHOL378P13 PO; +CICL15CR13 TOP; -DEXL60CA3 PO; -LEVO100C4 PO; +LEVO75TA7 PO; -METO-292 PO; -ONDA8TAB6 PO; -OXYC-145 PO; -OXYC10TA6 PO; +PEG15DRO14 EACHEYE; +PER5325T PO; -POLY17PO10 PO; +TOBR5DRO7 EACHEYE; -ZOLP5TAB8 PO; -[UNRECOGNIZED DRUG - OTHER]; +cognium PO
[2022-06-13] MEDS ORDERED: LEVO100C4 PO (06:33)
[2022-06-13] MEDS ORDERED: TRAM50TA2 PO (06:39)
[2022-06-13] MEDS ORDERED: XYL25J TOP (06:41)
[2022-06-13] MEDS ORDERED: fentaNYL/PF 50MCG/1 ML 2ML syringe ONE (06:45)
[2022-06-13] MEDS ORDERED: iohexol 300mg/ml 100ml inj. ONE (06:45)
[2022-06-13] MEDS ORDERED: diphenhydrAMINE 50 mg/ml inj ONE (06:46)
[2022-06-13] MEDS ORDERED: LIDOcaine Viscous 15ml cup ONE (06:46)
[2022-06-13] MEDS ORDERED: MIDAZolam 1 MG/ML 5ML VIAL ONE (06:46)
[2022-06-13] MEDS ORDERED: glucagon, human recombinant 1mg kit ONE (06:46)
[2022-06-13] MEDS ORDERED: levoFLOXACIN-Levaquin 500mg/D5 100 ML IV ONE (07:13)
== END 2022-06-13 09:00 | disposition home or self-care (01) ==
LOC: GI LAB 06:13
PROVIDERS: ATTEND Internal Medicine Gastroenterology
DX: K80.50 Calculus of bile duct without cholangitis or cholecystitis without obstruction (principal); E03.9 Hypothyroidism, unspecified; Z79.899 Other long term (current) drug therapy; Z98.890 Other specified postprocedural states
CPT/HCPCS: 43264; 43275; 99153; C1726; C1769; C1773; G0500; J1200; J1956; J2250; J3010; J7030; Q9967; Z7512; Z7610; 99152; A4620; J1610

== ENCOUNTER 2022-08-27 07:40 | Day surgery (SDC) | payer MEDICARE ==
[~2022-08-27] VITALS: Ht 167.6 cm; Wt 60.4 kg
[~2022-08-27 07:40] MED LIST changes: -LACTC PO; +LEVO100C4 PO; -LEVO75TA7 PO; +TRAM50TA2 PO; +XYL25J TOP
[2022-08-27] MEDS ORDERED: TRAM50TA2 PO (08:33)
[2022-08-27] MEDS ORDERED: VERA120C2 PO (08:33)
[2022-08-27 08:45] VITALS: BP 158/44
[2022-08-27 08:59] LABS: BASOPHILS # (AUTO) 0.1 X10'3 (0-0.2); BASOPHILS % (AUTO) 0.1 % (0-1); HEMOGLOBIN 12.7 g/dl (12.0-16.0)
[2022-08-27 09:00] LABS: EOSINOPHILS # (AUTO) 0.5 X10'3 (0-0.9); LYMPHOCYTES % (AUTO) 87.6 % (21-51); MEAN CORPUSCULAR HEMOGLOBIN 30.3 PG (27.0-31.0); MEAN CORPUSCULAR HGB CONC 32.5 g/dL (33.0-36.5); MEAN CORPUSCULAR VOLUME 93.2 FL (78-98); MEAN PLATELET VOLUME 10.3 FL (7.4-10.4); MONOCYTES # (AUTO) 1.1 X10'3 (0-0.9); MONOCYTES % (AUTO) 2.3 % (2-12); NEUTROPHILS # (AUTO) 4.4 X10'3 (1.8-7.7); PLATELET COUNT 138 X10'3 (140-440); RED BLOOD COUNT 4.19 X10'6 (4.20-5.60)
[2022-08-27 09:06] LABS: WHITE BLOOD COUNT 49.1 X10'3 (4.5-11.0)
[2022-08-27 10:13] LABS: PLATELET ESTIMATE DECREASED; TOTAL CELLS COUNTED 100
[2022-08-27] MEDS ORDERED: LIDOcaine 1% 30ml preserv. free vial IJ STA (10:13)
[2022-08-27 10:39] VITALS: BP 185/55
[2022-08-27 10:54] VITALS: BP 163/64
== END 2022-08-27 11:20 | disposition home or self-care (01) ==
LOC: SSTAY O 07:40
PROVIDERS: ATTEND Radiology Vascular & Interventional Radiology
DX: C91.10 Chronic lymphocytic leukemia of B-cell type not having achieved remission (principal); Z90.710 Acquired absence of both cervix and uterus; Z98.890 Other specified postprocedural states; Z79.899 Other long term (current) drug therapy; Z88.8 Allergy status to other drugs, medicaments and biological substances; Z88.0 Allergy status to penicillin; Z88.6 Allergy status to analgesic agent; Z88.2 Allergy status to sulfonamides; Z91.018 Allergy to other foods
CPT/HCPCS: 38505; 76942; 85025; 85610; J7030; 85007